=== PATIENT | female | born 1965 | race Caucasian/White ===

== ENCOUNTER 2021-03-07 21:17 | Emergency (ER) | payer OTHER ==
[~2021-03-07 21:17] MED LIST: ASPIRIN CHEWABL81 MG PO; CLONAZEPAM 1MG T1 MG PO; FEOSOL325 MG PO; NORCO 5-325 TA1 EACH PO; PAXIL40 MG PO; PERCOCET 5-3251 EACH PO; REXULTI2 MG PO; SENNA-TIME S T1 EACH PO; TRAZODONE 100M100 MG PO; ULTRAM50 MG PO
[2021-03-07 21:46] LABS: BILIRUBIN NEGATIVE (NEGATIVE); BLOOD TRACE-INTACT Ery/uL (NEGATIVE); CLARITY CLEAR (CLEAR); COLOR YELLOW (YELLOW); GLUCOSE (U) NORMAL (NORMAL); LEUKOCYTES NEGATIVE Leu/uL (NEGATIVE); NITRITE NEGATIVE (NEGATIVE); PROTEIN NEGATIVE (NEGATIVE); UROBILINOGEN 0.2 mg/dL (0.2-1.0)
[2021-03-07 21:51] LABS: SQUAMOUS EPITHELIAL CELLS RARE; URINARY WBC RARE
[2021-03-07 22:40] LABS: BASOPHIL 0.7 % (0-2); EOSINOPHIL 1.6 % (0-5); HCT 38.2 % (37.0-47.0); HGB 12.8 g/dl (12.5-16.0); LYMPHOCYTE 22.9 % (15-48); MCH 30.7 pg (25.0-31.0); MCHC 33.5 g/dL (32.0-36.0); MCV 91.6 fL (78.0-100.0); MPV 10.2 fL (6.0-9.5); NEUTROPHIL 69.3 % (41-80); NRBC 0; PLT 255 K/uL (150-400); RBC 4.17 M/uL (4.20-5.40); WBC 18.3 K/uL (4.0-10.5)
[2021-03-07 22:49] LABS: ALBUMIN 3.7 g/dL (3.4-5.0); BILIRUBIN - TOTAL 0.3 mg/dL (0.2-1.0); BUN/CREAT RATIO (CALC) 17.8 RATIO; CREATININE 0.9 mg/dL (0.51-0.95); GLOBULIN (CALCULATION) 3.2 g/dL; TOTAL PROTEIN 6.9 g/dL (6.4-8.2)
[2021-03-07 22:58] LABS: LACTIC ACID 0.8 mmol/L (0.4-1.9)
== END 2021-03-08 03:15 | disposition other institution (70) ==
LOC: FER 21:17
PROVIDERS: Emergency Medicine Emergency Medical Services
DX: N13.2 Hydronephrosis with renal and ureteral calculous obstruction (principal); E78.5 Hyperlipidemia, unspecified; R19.7 Diarrhea, unspecified; F17.210 Nicotine dependence, cigarettes, uncomplicated; Z79.899 Other long term (current) drug therapy
CPT/HCPCS: 36415; 80053; 81001; 83605; 83690; 84145; 85025; J1170; J2405; J7030; Q9967